=== PATIENT | female | born 1970 | race Caucasian/White ===

== ENCOUNTER 2022-06-11 16:35 | Emergency (ER) | payer OTHER ==
[2022-06-11 17:02] VITALS: BP 124/75; PULSE 67; RESP 18; TEMP 97.8; BMI 25.4
== END 2022-06-11 17:02 | disposition home or self-care (01) ==
LOC: FER 16:35
DX: T78.40XA Allergy, unspecified, initial encounter (principal)
CPT/HCPCS: 99282-25